=== PATIENT | male | born 1965 | race Caucasian/White ===

== ENCOUNTER 2021-10-17 10:34 | Outpatient (CLI) | payer OTHER | END 2021-10-17 10:43 | disposition home or self-care (01) | LOC: SONOGRAMA 10:34 | PROVIDERS: ATTEND Physical Medicine & Rehabilitation | DX: M75.21 Bicipital tendinitis, right shoulder (principal) ==

== ENCOUNTER 2022-08-22 10:40 | Emergency (ER) | payer OTHER ==
[~2022-08-22] VITALS: Ht 175.3 cm; Wt 74.4 kg
[2022-08-22] MEDS ORDERED: TAMS0.4C PO (14:19)
[2022-08-22] MEDS ORDERED: ULTRAM50 MG PO (14:19)
[2022-08-22] MEDS ORDERED: KETO10TA2 PO (14:19)
== END 2022-08-22 16:17 ==
LOC: ER 10:40
DX: N20.1 Calculus of ureter (principal); N20.0 Calculus of kidney